=== PATIENT | female | born 1940 | race Hispanic/Latino ===

== ENCOUNTER 2018-10-26 15:30 | Emergency (ER) | payer MEDICARE ==
[2018-10-26 15:36] VITALS: RESP 18; BMI 27.2
--- NOTE | 2018-10-26 16:24 | CT ---
Date of service: 10/26/2018 PROCEDURE: CT HEAD WITHOUT CONTRAST. HISTORY: s/p head trauma COMPARISON: None available. TECHNIQUE: Axial computed tomography images were obtained through the head/brain without intravenous contrast. Radiation dose: Total exam DLP = 871.03 mGy-cm. This CT exam was performed using one or more of the following dose reduction techniques: Automated exposure control, adjustment of the mA and/or kV according to patient size, and/or use of iterative reconstruction technique. FINDINGS: HEMORRHAGE: No intracranial hemorrhage. BRAIN: No mass effect or edema. Atrophy. Chronic microvascular ischemic changes. Right basal ganglia lacunar infarction. VENTRICLES: Unremarkable. No hydrocephalus. CALVARIUM: Unremarkable. PARANASAL SINUSES: Unremarkable as visualized. No significant inflammatory changes. MASTOID AIR CELLS: Unremarkable as visualized. No inflammatory changes. OTHER FINDINGS: Right parietal scalp swelling. IMPRESSION: Right parietal scalp swelling. No calvarial fracture. No acute intracranial pathology.
--- NOTE | 2018-10-26 16:35 | ED PDOC ---
Arrival/HPI - General Chief Complaint: Abnormal Skin Integrity Time Seen by Provider: 10/26/18 15:56 Historian: Patient - History of Present Illness Narrative History of Present Illness (Text): 10/26/18 16:32 78yo female with Past medical history of hypertension and hyperlipdemia present with complaint of head injury s/p traum this evening. Patient states she missed one step while climbing down small house ladder and fell backward, hitting the head on her head on the floor. Came to Emergency department for the injury with bleeding. Denies LOC, focal weakness, visual changes, nausea, vomiting, dizziness. Past Medical History - Provider Review Nursing Documentation Reviewed: Yes - Tetanus Immunization Tetanus Immunization: Unknown - Cardiac Hx Hypertension: Yes - Psychiatric Hx Anxiety: Yes Hx Substance Use: No - Past Surgical History Past Surgical History: No Previous - Suicidal Assessment Feels Threatened In Home Enviroment: No Family/Social History - Physician Review Nursing Documentation Reviewed: Yes Family/Social History: Unknown Family HX Smoking Status: Never Smoked Hx Alcohol Use: Yes (Wine) Frequency of alcohol use: Socially Hx Substance Use: No Hx Substance Use Treatment: No Allergies/Home Meds Allergies/Adverse Reactions: Allergies nut - unspecified Allergy (Verified 10/26/18 15:41) ANAPHYLAXIS Home Medications: Home Meds Medication Instructions Recorded Confirmed Alprazolam [Xanax] 0.25 mg PO PRN PRN 09/24/14 10/26/18 Amitriptyline [Elavil] 50 mg PO HS 09/24/14 10/26/18 Atorvastatin [Lipitor] 80 mg PO DAILY 09/24/14 10/26/18 Celecoxib [celeBREX] 200 mg PO PRN PRN 09/24/14 10/26/18 Esomeprazole Magnesium [Nexium] 40 mg PO DAILY 09/24/14 10/26/18 Raloxifene HCl [Evista] 60 mg PO DAILY 09/24/14 10/26/18 Aspirin [Ecotrin] 81 mg PO DAILY 10/26/18 10/26/18 Folic Acid 1 mg PO DAILY 10/26/18 10/26/18 Temazepam 30 mg PO HS 10/26/18 10/26/18 Review of Systems - Physician Review All systems were reviewed & negative as marked: Yes - Review of Systems Constitutional: Normal Eyes: Normal ENT: Normal Respiratory: Normal Cardiovascular: Normal Gastrointestinal: Normal Genitourinary Female: Normal Musculoskeletal: Normal Skin: Normal Neurological: Other (Head injury) Endocrine: Normal Hemo/Lymphatic: Normal Psychiatric: Normal Physical Exam Vital Signs Reviewed: Yes Vital Signs Temp Pulse Resp BP Pulse Ox 10/26/18 15:35 97.7 F 88 18 148/92 H 100 Temperature: Afebrile Blood Pressure: Normal Pulse: Regular Respiratory Rate: Normal Appearance: Positive for: Well-Appearing, Non-Toxic, Comfortable Pain Distress: None Mental Status: Positive for: Alert and Oriented X 3 - Systems Exam Head: Present: Atraumatic, Normocephalic, Abrasion (Superficial abrasion to parietal scalp noted with mild bleeding) Pupils: Present: PERRL Extroacular Muscles: Present: EOMI Conjunctiva: Present: Normal Mouth: Present: Moist Mucous Membranes Neck: Present: Normal Range of Motion Respiratory/Chest: Present: Clear to Auscultation, Good Air Exchange. No: Respiratory Distress, Accessory Muscle Use Cardiovascular: Present: Regular Rate and Rhythm, Normal S1, S2. No: Murmurs Abdomen: No: Tenderness, Distention, Peritoneal Signs Back: Present: Normal Inspection Upper Extremity: Present: Normal Inspection. No: Cyanosis, Edema Lower Extremity: Present: Normal Inspection. No: Edema Neurological: Present: GCS=15, CN II-XII Intact, Speech Normal Skin: Present: Warm, Dry, Normal Color. No: Rashes Psychiatric: Present: Alert, Oriented x 3, Normal Insight, Normal Concentration Medical Decision Making ED Course and Treatment: 10/26/18 16:37 78yo female in Emergency department for head injury. wound irrigated , bacitracine applied and pressure dressing applied. Head CT IMPRESSION: Right parietal scalp swelling. No calvarial fracture. No acute intracranial pathology. TD booster updated. result was DW the pt and she was DC and referred to her PMD - RAD Interpretation Radiology Orders: 10/26/18 15:59 HEAD W/O CONTRAST [CT] Stat Disposition/Present on Arrival - Present on Arrival Any Indicators Present on Arrival: No History of DVT/PE: No History of Uncontrolled Diabetes: No Urinary Catheter: No History of Decub. Ulcer: No History Surgical Site Infection Following: None - Disposition Have Diagnosis and Disposition been Completed?: Yes Diagnosis: Head injury Disposition: HOME/ ROUTINE Disposition Time: 16:35 Patient Plan: Discharge Patient Problems: Current Active Problems Problem Status Onset Head injury Acute Condition: STABLE Discharge Instructions (ExitCare): Minor Head Injury (DC) Additional Instructions: Apply ice to area and keep area clean and dry Follow up with your doctor Return to Emergency department or any new or worsening symptoms Referrals: Amanda Lamebrt MD [Medical Doctor] - Follow up with primary
[2018-10-26] MEDS ORDERED: TDAP Vaccine 0.5 mL Syr IM ONE (16:38)
[2018-10-26 17:01] VITALS: BP 123/53; PULSE 85; TEMP 98; O2SAT 99
== END 2018-10-26 16:58 | disposition home or self-care (01) ==
LOC: ED 15:30
DX: S09.90XA Unspecified injury of head, initial encounter (principal); W11.XXXA Fall on and from ladder, initial encounter; I10 Essential (primary) hypertension; E78.5 Hyperlipidemia, unspecified; Z23 Encounter for immunization